=== PATIENT | female | born 1960 | race Caucasian/White ===

== ENCOUNTER 2023-09-22 10:37 | Outpatient (AMB) | payer OTHER, SELFPAY ==
--- NOTE | 2023-09-22 11:17 | AM.OFFWIN_ITS ---
Intake Vital Signs 09/22/23 11:19 Height 5 ft 5 in Weight 219 lb BMI 36.4 BP 168/102 H Blood Pressure Location Lt brachial Position Sitting Pulse 85 Pulse Source Pulse Oximeter Pulse Oximetry (%) 98 Oxygen Delivery Method Room Air Intake Visit Reasons: EP rt shoulder pain Intake Note: pt here c/o RT shoulder pain. Started yesterday. Seen at [facility]. Patient Tobacco Use Status: Never used Tobacco Allergies No Known Allergies [No Known Allergies*] Allergy (Verified 09/22/23 11:22) Do you need a note to return to daycare/school/sports/work: Yes HPI HPI Comments History of Present Illness Details 62 y/o female patient who presents to [facility] in clinic with c/o right shoulder pain for few days now. Denies any injury or trauma. [facility] Social History Patient Tobacco Use Status: Never used Tobacco Review of Systems Const All systems reviewed & are unremarkable except as noted in HPI and below Physical Exam Vital Signs: Last Vital Signs Pulse 85 09/22/23 11:19 BP 168/102 H 09/22/23 11:19 Pulse Ox 98 09/22/23 11:19 Oxygen Delivery Method Room Air 09/22/23 11:19 BMI result Body Mass Index 36.4 Const General: comfortable and no acute distress Nutritional Appearance: obese Orientation/consciousness: patient oriented x3 Neuro General: patient oriented x3, gait normal and moves all extremities Extrem Right upper extremity: shoulder/upper arm Details: normal to inspection, tenderness and abnormal ROM Details: pain with active ROM and pain with passive ROM; no swelling, no lacerations, no ecchymosis and no crepitus Left upper extremity: normal to inspection and full ROM Psych Speech and movement: Normal speech and movement present Assessment & Plan Assessment & Plan (1) Right shoulder pain: Code(s): M25.511 - Pain in right shoulder Qualifiers: Chronicity: acute Qualified Code(s): M25.511 - Pain in right shoulder Plan: ordered Xray shoulder Acetaminophen for pain relief Ordered PT Ice/Hot Orders: Orders XR shoulder RT min 2V Today M25.511 - Pain in right shoulder PT Evaluation and Treatment Today M25.511 - Pain in right shoulder Medications: New meloxicam 15 mg PO DAILY 30 tabs 0RF M25.511 - Pain in right shoulder acetaminophen 1,000 mg (2 x 500 mg) PO Q6H PRN 30 caps 0RF pain (scale score 4- 6) M25.511 - Pain in right shoulder prednisone 40 mg (2 x 20 mg) PO DAILY 10 tabs 0RF 5 days M25.511 - Pain in right shoulder cyclobenzaprine 10 mg PO BEDTIME 10 tabs 0RF M25.511 - Pain in right shoulder Coding Level of Care Code Est Pt Level 4 (46538) Diagnoses Acute pain of right shoulder M25.511 Chronicity: acute Time Spent (min) 20
[2023-09-22 11:19] VITALS: BP 168/102; PULSE 85; O2SAT 98; BMI 36.4
== END 2023-09-22 12:31 | disposition home or self-care (01) ==
PROVIDERS: PCP Physician Assistant Medical; Visit Provider Nurse Practitioner Family
DX: M25.511 Pain in right shoulder (principal)
CPT/HCPCS: 99214

== ENCOUNTER 2023-09-22 11:41 | Outpatient (REF) | payer OTHER, SELFPAY ==
--- NOTE | ~2023-09-22 | XR_ITS ---
EXAMINATION: XR SHOULDER, RIGHT CLINICAL INFORMATION: Pain and right shoulder COMPARISON: Chest radiograph 12/16/2015 TECHNIQUE: AP external rotation, Grashey and scapular Y of the right shoulder. FINDINGS: No acute fracture or dislocation. The glenohumeral alignment is anatomic. Severe degenerative changes involving the right acromioclavicular joint with joint space narrowing, osteophytosis and subchondral sclerosis. No acute soft tissue abnormality. No abnormal soft tissue calcifications. Included right lung is clear. XR/XR shoulder RT min 2V IMPRESSION: No acute fracture or dislocation. Severe osteoarthritic changes involving the right acromioclavicular joint.
== END 2023-09-22 11:42 | disposition home or self-care (01) ==
LOC: HO.HMGCX 11:41
PROVIDERS: PCP Physician Assistant Medical; Visit Provider Nurse Practitioner Family
DX: M25.511 Pain in right shoulder (principal)
CPT/HCPCS: 73030